=== PATIENT | female | born 1965 | race Caucasian/White ===

== ENCOUNTER 2021-10-11 12:21 | Outpatient (CLI) | payer OTHER, SELFPAY ==
[~2021-10-11] VITALS: Ht 160 cm; Wt 63.5 kg
== END 2021-10-11 23:59 | disposition home or self-care (01) ==
LOC: MLB 12:21 → EDSTATUS 10-13 08:20
PROVIDERS: ATTEND Internal Medicine Gastroenterology
DX: Z01.812 Encounter for preprocedural laboratory examination (principal); Z20.822 Contact with and (suspected) exposure to COVID-19